=== PATIENT | male | born 1940 | race Caucasian/White ===

== ENCOUNTER 2016-12-27 17:56 | Emergency (ER) | payer MEDICARE, BC ==
[~2016-12-27 17:56] MED LIST: ALLEGRA DPS180 MG PO; ATIVAN-DPS1 MG PO; CARTIA XT120 MG PO; COUMADIN5 MG PO; FLOMAX DPS0.4 MG PO; FLONASE 0.05% D16 GM NS; HUMALOG100 UNIT/1 SQ; LAMICTAL DPS100 MG PO; LEVEMIR100 UNIT/1 SQ; MEVACOR40 MG PO; MIRAPEX0.5 MG PO; MUCINEX600 MG PO; NITROSTAT0.4 MG SL; NIZORAL SHAMPO120 ML TP; NOVOLOG100 UNIT/2 SQ; REMERON DPS30 MG PO; SEROQUEL DPS300 MG PO; SINEQUAN DPS PO; SOTALOL80 MG PO; SYNTHROID175 MCG PO; THERA1 EACH PO; TYLENOL-DPS325 MG PO; WELLBUTRIN XL150 MG PO; XALATAN2.5 ML OU
--- NOTE | 2017-02-09 15:33 | ER ---
ADMIT: 12/27/2016 RM/LOC: ER [facility] MR#: [id number] [address] [address] [address] [place] [address] Emergency Room Report SEX: M AGE: 76 : 1940 DATE: 12/27/2016 ADDENDUM: This patient comes to the ER because he had [facility]. According to the [facility] report, it was 41. When he comes to the ER, he is alert and oriented and he is able to walk without any difficulties. CBC, BMP, and UA were normal. DIAGNOSIS: Hypoglycemia. In the emergency room, we gave him food and his blood sugars continued to remain steady and he was having no difficulties. He was discharged to follow up with Dr. Ambrocio as needed. They do have an appointment scheduled with him to discuss his blood sugar issues. Please see my T-sheet. AP Mayorga / Eliot Anand MD / abigail JOB #: [id number] CC: Eliot Anand MD, Attending Physician Alfredo Ambrocio DO, Family Physician
[2017-03-01] MEDS ORDERED: NOVOLOG100 UNIT/2 SQ ×2 (13:30)
[2017-03-01] MEDS ORDERED: NYSTATIN CREAM15 GM TP (13:31)
[2017-03-01] MEDS ORDERED: SINEQUAN-DPS50 MG PO (13:31)
[2017-03-01] MEDS ORDERED: GLUCAGON HCL1 MG IM (13:34)
[2017-03-01] MEDS ORDERED: GLUTOSE 1537.5 GM PO (13:34)
[2017-03-01] MEDS ORDERED: COLACE-DPS100 MG PO (13:34)
== END 2016-12-27 22:15 | disposition home or self-care (01) ==
LOC: ER 17:56
DX: E11.649 Type 2 diabetes mellitus with hypoglycemia without coma (principal); I10 Essential (primary) hypertension; Z88.0 Allergy status to penicillin; Z79.899 Other long term (current) drug therapy

== ENCOUNTER 2016-12-29 07:46 | Observation (INO) | payer MEDICARE, BC ==
[~2016-12-29] VITALS: Ht 170.2 cm; Wt 76.9 kg
--- NOTE | 2016-12-31 12:33 | ER ---
ADMIT: 12/29/2016 RM/LOC: ER [facility] MR#: [id number] [address] [facility] [address] [place] [phone] [address] [place] [address] Emergency Room Report SEX: M AGE: 76 : 1940 DATE: 12/29/2016 ADDENDUM: Patient complained that he could not get up and walk. He was too weak even though we had looked at a lot of medications last week. He has troubles just getting up and using the bathroom. At this time, I did speak with Dr. Ambrocio, we are going to admit him for further evaluation. Obviously, he is not able to be taken care of at home. CONDITION ON DISCHARGE: Fair. Eliot Anand MD/ abigail JOB #: [id number] CC: Eliot Anand MD, Attending Physician
--- NOTE | 2016-12-31 12:33 | ER ---
ADMIT: 12/29/2016 RM/LOC: ER [facility] MR#: [id number] [address] [address] [address] [place] [address] Emergency Room Report SEX: M AGE: 76 : 1940 DATE: 12/29/2016 ADDENDUM: This 76-year-old white male coming in with multiple complaints. He was seen yesterday, full workup, nothing found. He does have multiple medical problems, but nothing acute. He says he has palpitations that are not new. He also says that he cannot sleep, that is not new. I spoke with Dr. Ambrocio on that and essentially that was negative. He states he has constipation. He does have a little stool on his flat plate. His blood sugar was 170 when came in, so he does not have hypoglycemia though he is diabetic. He was to follow up with Dr. Ambrocio and then keep his appointment. CONDITION ON DISCHARGE: Fair. Eliot Anand MD/ abigail JOB #: [id number] CC: Eliot Anand MD, Attending Physician
[2016-12-31] MEDS ORDERED: FLOMAX DPS0.4 MG PO (20:54)
[2016-12-31] MEDS ORDERED: BETAPACE DPS80 MG PO (20:54)
[2016-12-31] MEDS ORDERED: CARDIZEM CD DP120 MG PO (20:54)
[2016-12-31] MEDS ORDERED: MIRAPEX DPS0.25 MG PO (20:55)
[2016-12-31] MEDS ORDERED: COUMADIN5 MG PO (20:55)
[2016-12-31] MEDS ORDERED: COUMADIN2.5 MG PO (20:55)
[2016-12-31] MEDS ORDERED: SEROQUEL DPS300 MG PO (20:55)
[2016-12-31] MEDS ORDERED: PRAVACHOL40 MG PO (20:56)
[2016-12-31] MEDS ORDERED: DOXEPIN HCL150 MG PO (20:56)
[2016-12-31] MEDS ORDERED: REMERON DPS30 MG PO (20:56)
[2016-12-31] MEDS ORDERED: SYNTHROID DP0.175 MG PO (20:56)
[2016-12-31] MEDS ORDERED: LEVEMIR100 UNIT/1 SQ ×2 (20:57→20:58)
[2016-12-31] MEDS ORDERED: XALATAN2.5 ML OU (20:57)
[2016-12-31] MEDS ORDERED: ATIVAN1 MG PO (20:57)
[2016-12-31] MEDS ORDERED: LAMICTAL DPS25 MG PO (20:57)
[2016-12-31] MEDS ORDERED: LAMICTAL DPS100 MG PO (20:57)
[2016-12-31] MEDS ORDERED: FLONASE 0.05% D16 GM NS (20:58)
[2016-12-31] MEDS ORDERED: THERA1 EACH PO (20:58)
[2016-12-31] MEDS ORDERED: CALTRATE-600 W600 MG PO (20:58)
[2016-12-31] MEDS ORDERED: CLARITIN DPS10 MG PO (20:58)
[2016-12-31] MEDS ORDERED: MILK OF MAGNESI10 ML PO (20:59)
[2016-12-31] MEDS ORDERED: TYLENOL DPS325 MG PO (20:59)
[2016-12-31] MEDS ORDERED: MAALOX DPS30 ML PO (20:59)
[2016-12-31] MEDS ORDERED: LINZESS145 MCG PO (20:59)
[2016-12-31] MEDS ORDERED: SURFAK DPS240 MG PO (21:00)
[2016-12-31] MEDS ORDERED: MIRALAX PACKET17 GM PO (21:00)
--- NOTE | 2017-02-08 10:51 | DS ---
ADMIT: 12/29/2016 RM/LOC: 523 [facility] MR#: [id number] 2620 [facility] [address] [place], [place] [address] [address] [place] [address] Discharge Summary SEX: M AGE: 76 : 1940 ADMISSION DATE: 12/29/2016 DISCHARGE DATE: 12/31/2016 REASON FOR HOSPITALIZATION: Anxiety, dementia. He presented to the emergency room and was unable to stand and walk in the emergency room, but it was not really clear if he was unable or unwilling. I was called by the emergency room and they told me that they essentially could not send him home in his current condition. I was asked to admit him to further identify his issues and evaluate him. On exam, he was very tangential in conversation. Heart regular. Lungs clear. Abdomen soft. I really could not find anything physically wrong with him. There were concerns that maybe he was orthostatic and hypotensive. My working diagnosis was incapacitation secondary to anxiety and depression. He is losing his ability to function within his home although he and his refused the idea of long-term care intermediate. I admitted him, did metabolic evaluation, and asked for Psychiatry to evaluate. Performed orthostatic blood pressures and pulses, checked cortisol levels, treated his constipation, monitored his diabetes, and treated accordingly. On 12/31, found no further reason to keep him in the hospital. He refused long- term care and we therefore dismissed him home with final diagnosis of incapacitating anxiety and depression. We did have him undergo modified barium swallow, and they made recommendations for change in his diet program. DISMISSAL MEDICATIONS: He was dismissed on: 1. Ativan. 2. Betapace. 3. Caltrate. 4. Cardizem. 5. Coumadin. 6. Flomax. 7. Lamictal. 8. Linzess. 9. Mevacor. 10.Mirapex. 11.Remeron. 12.Seroquel. 13.Sinequan. 14.Synthroid. ADMIT: 12/29/2016 RM/LOC: 523 [facility] MR#: [id number] [address] [address] [address] [place] [address] Discharge Summary SEX: M AGE: 76 : 1940 15.Therapeutic multivitamin. 16.Xalatan. 17.Levemir. 18.Claritin. 19.Maalox. 20.Milk of magnesia. 21.MiraLax. 22.Surfak. 23.Tylenol. 24.Flonase. For specifics of dosing, please refer to his extensive dismissal order set. He was to return to see me within 2 weeks of dismissal or sooner if problems. Alfredo Ambrocio DO/ beckyl JOB #: [id number] CC: Alfredo Ambrocio DO, Attending Physician Alfredo Ambrocio DO, Family Physician
[2017-03-01] MEDS ORDERED: NOVOLOG100 UNIT/2 SQ ×2 (13:30)
[2017-03-01] MEDS ORDERED: SINEQUAN-DPS50 MG PO (13:31)
[2017-03-01] MEDS ORDERED: NYSTATIN CREAM15 GM TP (13:31)
[2017-03-01] MEDS ORDERED: COLACE-DPS100 MG PO (13:34)
[2017-03-01] MEDS ORDERED: GLUCAGON HCL1 MG IM (13:34)
[2017-03-01] MEDS ORDERED: GLUTOSE 1537.5 GM PO (13:34)
== END 2016-12-31 16:00 | disposition home health service (06) ==
LOC: ER 07:46 → 5MS 09:35
PROVIDERS: ADMIT Internal Medicine
DX: R53.1 Weakness (principal); E11.9 Type 2 diabetes mellitus without complications; K59.00 Constipation, unspecified; I25.10 Atherosclerotic heart disease of native coronary artery without angina pectoris; I10 Essential (primary) hypertension; F41.9 Anxiety disorder, unspecified; F32.9 Major depressive disorder, single episode, unspecified; G47.33 Obstructive sleep apnea (adult) (pediatric); G25.81 Restless legs syndrome; I48.1 Persistent atrial fibrillation; N40.0 Benign prostatic hyperplasia without lower urinary tract symptoms; H40.9 Unspecified glaucoma

== ENCOUNTER 2017-01-24 20:14 | Emergency (ER) | payer MEDICARE, BC ==
[~2017-01-24 20:14] MED LIST changes: +ATIVAN1 MG PO; +BETAPACE DPS80 MG PO; +CALTRATE-600 W600 MG PO; +CARDIZEM CD DP120 MG PO; +CLARITIN DPS10 MG PO; +COUMADIN2.5 MG PO; +DOXEPIN HCL150 MG PO; +LAMICTAL DPS25 MG PO; +LINZESS145 MCG PO; +MAALOX DPS30 ML PO; +MILK OF MAGNESI10 ML PO; +MIRALAX PACKET17 GM PO; +MIRAPEX DPS0.25 MG PO; +PRAVACHOL40 MG PO; +SURFAK DPS240 MG PO; +SYNTHROID DP0.175 MG PO; +TYLENOL DPS325 MG PO
--- NOTE | 2017-01-29 19:21 | ER ---
ADMIT: 01/24/2017 RM/LOC: ER [facility] MR#: [id number] 26[address] [facility] [address] [address] [place] [address] Emergency Room Report SEX: M AGE: 76 : 1940 DATE: 01/24/2017 The patient is a 76-year-old male, complaining of labile blood sugar, sugar at home was 53, 92 mg/dL here. The patient is obviously anxious and concerned. Recommended decreasing insulin to 11 units Humalog t.i.d. with meals and 26 units of Levemir at HS. Follow up Dr. Ambrocio this week. Gonzalez Bhatia MD/ modl JOB #: [id number] CC: Gonzalez Bhatia MD, Attending Physician Alfredo Ambrocio DO, Family Physician Alfredo Ambrocio DO
[2017-03-01] MEDS ORDERED: NOVOLOG100 UNIT/2 SQ ×2 (13:30)
[2017-03-01] MEDS ORDERED: SINEQUAN-DPS50 MG PO (13:31)
[2017-03-01] MEDS ORDERED: NYSTATIN CREAM15 GM TP (13:31)
[2017-03-01] MEDS ORDERED: GLUTOSE 1537.5 GM PO (13:34)
[2017-03-01] MEDS ORDERED: GLUCAGON HCL1 MG IM (13:34)
[2017-03-01] MEDS ORDERED: COLACE-DPS100 MG PO (13:34)
== END 2017-01-24 21:15 | disposition home or self-care (01) ==
LOC: ER 20:14
DX: E11.9 Type 2 diabetes mellitus without complications (principal); I10 Essential (primary) hypertension; Z79.4 Long term (current) use of insulin

== ENCOUNTER 2017-02-24 22:15 | Inpatient (IN) | payer MEDICARE, BC ==
[~2017-02-24] VITALS: Ht 170.2 cm; Wt 74.0 kg
--- NOTE | ~2017-02-24 | DS ---
ADMIT: 02/25/2017 RM/LOC: 521 [facility] MR#: [id number] 2620 [facility] [address] [place] [phone] [place] [address] General Discharge Summary SEX: M AGE: 76 : 1940 ADMISSION DATE: 02/25/2017 DISCHARGE DATE: 02/28/2017 REASON FOR HOSPITALIZATION: 1. Hypertension. 2. Dementia. 3. Diabetes. HISTORY OF PRESENT ILLNESS: The patient presented failing in the home, unable to remember his medications. This is his second attempt trying to manage at home in light of his underlying progressive dementia. He presented with a blood sugar of over 500, and significantly elevated blood pressure. HOSPITAL COURSE: We admitted him to the hospital, started him on a regimen of insulin, boosted his Coumadin therapy for chronic atrial fibrillation and managed his blood pressure. I had Apparel Rental Clerk get involved and contacted patient's family with recommendations that they established, power of tax associate attorney, and transitioned him to long-term care and dementia management. Ultimately, we were able to get family involved and they did make arrangements for snf. His blood sugars came under improved control as did his blood pressure. His INR approach therapeutic. On 02/28, I dismissed him. I wrote orders to dismiss him for snf dementia management. He was to have a ProTime, INR in 1 week, and return to clinic and to see me in 2 weeks. DISCHARGE MEDICATIONS: His medications are extensive and can be reviewed in the dismissal orders. Alfredo Ambrocio DO/ beckyl JOB #: [id number] CC: Alfredo Ambrocio DO, Attending Physician Alfredo Ambrocio DO, Family Physician
--- NOTE | 2017-02-25 19:58 | ER ---
ADMIT: 02/25/2017 RM/LOC: 521 [facility] MR#: [id number] [id number] [place], [place] [address] [address] [place] [address] Emergency Room Report SEX: M AGE: 76 : 1940 DATE: 02/24/2017 The patient is a 76-year-old male with a past medical history of dementia, diabetes, and multiple comorbidities, was brought to the ER because of high blood sugar. The patient states he had high blood sugar and is compliant with his insulin. The patient denies any nausea, vomiting, headache, chest pain, shortness of breath, abdominal pain, or diarrhea. Fingerstick blood sugar was in 400s in the ER. The patient received IV fluids and normal saline 1 L bolus and blood sugar was checked fingerstick, which was in 200s. [id number] came to the ER and states that the patient has history of dementia and sometimes could be danger to himself, as the patient sometimes leaves the propane gas open per [id number] allegedly and the patient lives by himself, there is no family around nearby. Nursing contacted Adult Protective Services, as the patient was depressed and states that maybe in the recent future he would pass away, but the patient denies any suicidal ideation or illusions or delusions or hallucinations. Adult Protective Services got the information and stated that it takes a few days to evaluate the situation. Meanwhile, the Family Medicine was contacted and the patient was admitted for further followups and treatments of hyperglycemia, dementia, and placement. Kashif Hernandez MD/ abigail JOB #: [id number] CC: Alfredo Ambrocio DO, Attending Physician Alfredo Ambrocio DO, Family Physician
[2017-03-01] MEDS ORDERED: NOVOLOG100 UNIT/2 SQ ×2 (13:30)
[2017-03-01] MEDS ORDERED: NYSTATIN CREAM15 GM TP (13:31)
[2017-03-01] MEDS ORDERED: SINEQUAN-DPS50 MG PO (13:31)
[2017-03-01] MEDS ORDERED: GLUCAGON HCL1 MG IM (13:34)
[2017-03-01] MEDS ORDERED: GLUTOSE 1537.5 GM PO (13:34)
[2017-03-01] MEDS ORDERED: COLACE-DPS100 MG PO (13:34)
--- NOTE | 2017-04-18 08:35 | HP ---
ADMIT: 02/25/2017 RM/LOC: 521 [facility] MR#: [id number] [address] [facility] [address] [place] [phone] [place] [address] History and Physical SEX: M AGE: 76 : 1940 DATE OF SERVICE: REASON FOR HOSPITALIZATION: Dementia and diabetes. HISTORY OF PRESENT ILLNESS: This is a 77-year-old male patient who has had declining status in his home and inability to manage his own multiple and somewhat complex medical issues. He has had some failure to thrive, and we decided to admit him to the hospital when he presented to the emergency room with a blood sugar greater than 500 and uncontrolled hypertension. It appears that he has been forgetful and not consistently taking his medications and his is not able to compensate for his deficiencies in his mental capacities and dementia. PAST MEDICAL HISTORY: He has a history of atrial fibrillation, hypertension, diabetes, dementia, depression, coronary artery disease, BPH, and hypothyroidism. MEDICATIONS: At the time of admission: 1. Tamsulosin. 2. Sotalol. 3. Cardia. 4. Warfarin. 5. Pramipexole. 6. Quetiapine. 7. Levothyroxine. 8. Doxepin. 9. Lovastatin. 10.Mirtazapine. 11.Lorazepam. 12.Travoprost. 13.Lamotrigine. 14.Humalog. 15.Insulin. 16.Levemir at bedtime. 17.Multivitamin. 18.Calcium with D. 19.Claritin. 20.Flonase. 21.Tylenol. 22.P.r.n. therapies. SOCIAL HISTORY: He has been living at home with his and does not smoke or use alcohol. FAMILY HISTORY: Noncontributory. REVIEW OF SYSTEMS: He really has limited insight and could not provide a lot of detail into his admission concerns or hyperglycemia. He currently denies any chest pain. ADMIT: 02/25/2017 RM/LOC: 521 [facility] MR#: [id number] [address] [address] [place] [address] History and Physical SEX: M AGE: 76 : 1940 PHYSICAL EXAMINATION: GENERAL: Again, limited insight. He is alert and pleasant. HEART: Regular. LUNGS: Clear. ABDOMEN: Soft. : He does have ulcer over the head of the penis. His blood pressure is elevated. His blood sugar after emergency room management came down to 285. IMPRESSION: 1. Hypertension. 2. Diabetes, uncontrolled. 3. Dementia with failing in-home status. This was his 2nd effort at trying to manage in home. At this point, we are going to talk this over with his children and begin making arrangements for transition to long-term care/dementia management. Alfredo Ambrocio DO/ abigail JOB #: [id number] CC: Alfredo Ambrocio DO, Attending Physician Alfredo Ambrocio DO, Family Physician
== END 2017-02-28 15:57 | DRG 638 ==
LOC: ER 22:15 → 5MS 02-25 01:56
PROVIDERS: ADMIT Internal Medicine
DX: E11.65 Type 2 diabetes mellitus with hyperglycemia (principal); B37.49 Other urogenital candidiasis; F03.90 Unspecified dementia, unspecified severity, without behavioral disturbance, psychotic disturbance, mood disturbance, and anxiety; I48.2 Chronic atrial fibrillation; I10 Essential (primary) hypertension; F32.9 Major depressive disorder, single episode, unspecified; I25.10 Atherosclerotic heart disease of native coronary artery without angina pectoris; E03.9 Hypothyroidism, unspecified; N40.0 Benign prostatic hyperplasia without lower urinary tract symptoms; N48.5 Ulcer of penis; Z79.4 Long term (current) use of insulin